=== PATIENT | male | born 1955 | race Two or more races ===

== ENCOUNTER 2023-01-02 17:16 | Inpatient (IN) | payer OTHER ==
[~2023-01-02] VITALS: Ht 165.1 cm; Wt 88.5 kg
--- NOTE | 2023-01-02 17:40 | NUR ---
PTE ALERTA Y ORIENTADO X 3 ESFERAS EN COMPANIA DE FAMILIAR QUIEN REFIERE HGB EN 7.PTE ENVIADO POR DR GILL.
--- NOTE | 2023-01-02 18:22 | NUR ---
RN CARLTON LE ORIENTA A PTE SOBRE TRATAMIENTO E INSTRUCCIONES A SEGUIR, EL REFIERE ENTENDER. LE COLECTA MUESTRAS, SE CANALIZA Y SE ADMINISTRA MEDICAMENTO GARO ORDEN MEDICA. SE LLAMA A BANCO DE [facility] Y SE HABLA CON SOBRE SI PTE TIENE RECORD PREVIO, EL INDICA QUE PTE NO TIENE RECORD PREVIO; EN ADICIONAL SE REQUISA 2 UNIDADES DE PRBC COMPLETAS. SE COLECTA TUBOS PILOTOS Y TERCER TUBO, SE ENVIA A LABORATORIO. PTE FIRMA CONCENTIMIENTO Y SE COLOCA EN RECORD
== END 2023-01-04 16:01 | disposition home or self-care (01) | DRG 349 ==
LOC: ER 17:16 → SURG 18:06 → SEC-K 18:06 → O/R 01-03 12:27 → SURG 01-03 15:57
PROVIDERS: ADMIT Colon & Rectal Surgery; ATTEND Colon & Rectal Surgery
PROC: 06LY0CC Occlusion of Hemorrhoidal Plexus with Extraluminal Device, Open Approach (ICD-10-PCS; 2023-01-03)
PROC: 30233N1 Transfusion of Nonautologous Red Blood Cells into Peripheral Vein, Percutaneous Approach (ICD-10-PCS; 2023-01-03)
PROC: 06BY0ZC Excision of Hemorrhoidal Plexus, Open Approach (ICD-10-PCS; principal; 2023-01-03 13:15)
DX: K64.4 Residual hemorrhoidal skin tags (principal); K64.8 Other hemorrhoids; D64.9 Anemia, unspecified

== ENCOUNTER 2023-06-29 09:24 | Inpatient (IN) | payer OTHER ==
[~2023-06-29] VITALS: Ht 167.6 cm; Wt 78.5 kg
[2023-06-29 13:31] LABS: MEAN CELL VOLUME 91.3 fL (80.0-100.00); MEAN CORPUSCULAR HGB CONC 33.7 g/dl (32.0-36.0); PLATELET COUNT 140 K/uL (150-450); RED BLOOD COUNT 2.33 M/uL (4.00-6.00); RED CELL DISTRIBUTION WIDTH 18.9 % (11.5-14.5)
[2023-06-29 13:33] LABS: HEMATOCRIT 21.2 % (39.0-48.0); HEMOGLOBIN 7.1 g/dL (13-16.00); MEAN CORPUSCULAR HEMOGLOBIN 30.4 pg (27.00-32.0)
[2023-06-29 13:47] LABS: INR 1.26; PARTIAL THROMBOPLASTIN TIME 27.1 SECONDS (22.0-34.0)
[2023-06-29 14:02] LABS: ALBUMIN 2.2 gm/dL (3.4-5.0); ALKALINE PHOSPHATASE 44 U/L (50-136); ALT/SGPT 19 U/L (12-78); ANION GAP 3 (10.0-20.0); AST/SGOT 17 U/L (15-37); BILIRUBIN TOTAL 0.33 mg/dL (0.3-1.2); BILIRUBIN,CONJUGATED < 0.10 mg/dL (0.0-0.2); BILIRUBIN,UNCONJUGATED 0.23 mg/dL (0.0-0.6); BLOOD UREA NITROGEN 26 mg/dL (7-18); BUN CREA RATIO 18 (7.0-25.0); CALCIUM 8.4 mg/dL (8.5-10.1); CARBON DIOXIDE 28 mEq/L (21-32); CHLORIDE 107 mmol/L (98-107); CREATININE SERUM 1.44 mg/dL (0.70-1.30); GFR 48.93; GLUCOSE FASTING 106 mg/dL (65-100); LIPASE 38 U/L (13-75); OSMOLALITY SERUM 273 MOSM/KG (275-295); POTASSIUM 4.07 mEq/L (3.5-5.1); SODIUM 134 mmol/L (136-145)
[2023-06-29 14:37] LABS: GLOBULINA 13.9 G/DL (2.4-3.5); TOTAL PROTEIN 16.1 gm/dL (6.4-8.2)
[2023-06-29 16:03] LABS: URINE COLOR YELLOW
[2023-06-29 16:04] LABS: URINE APPEARANCE CLEAR; URINE BILIRRUBIN NEGATIVE (NEGATIVE); URINE GLUCOSE NEGATIVE (NEGATIVE)
[2023-06-29 16:05] LABS: PH,URINE 5.5 (5.0-8.0); URINE BLOOD TRACE
[2023-06-29 16:06] LABS: URINE LEUKOCYTE NEGATIVE; URINE NITRATE NEGATIVE; URINE PROTEIN TRACE (NEGATIVE); URINE UROBILINOGEN 0.2 E.U./dl
[2023-06-29 16:07] LABS: URINE EPITHELIAL CELLS 1.2 uL (0.0-38.8); URINE RBC 7.4 uL (0.0-20.8); URINE WBC 2.9 uL (0.0-23.2)
[2023-06-29 16:08] LABS: URINE BACTERIA 8.8 uL (0.0-1933)
[2023-06-30 08:44] LABS: MEAN CELL VOLUME 88.8 fL (80.0-100.00); MEAN CORPUSCULAR HGB CONC 33.5 g/dl (32.0-36.0); PLATELET COUNT 131 K/uL (150-450); RED CELL DISTRIBUTION WIDTH 19.3 % (11.5-14.5)
[2023-06-30 08:47] LABS: HEMOGLOBIN 7.7 g/dL (13-16.00); MEAN CORPUSCULAR HEMOGLOBIN 29.6 pg (27.00-32.0)
[2023-06-30 08:48] LABS: HEMATOCRIT 23.1 % (39.0-48.0)
[2023-06-30 09:05] LABS: C-REACTIVE PROTEIN < 0.29 MG/DL (0.00-0.29); LDH 268 U/L (87-241)
[2023-06-30 09:14] LABS: ALBUMIN 2.2 gm/dL (3.4-5.0); BILIRUBIN TOTAL 0.41 mg/dL (0.3-1.2); CALCIUM 8.1 mg/dL (8.5-10.1); CREATININE SERUM 1.37 mg/dL (0.70-1.30); GFR 51.83; GLOBULINA 12.5 G/DL (2.4-3.5); MAGNESIUM 1.9 mg/dL (1.8-2.4); PHOSPHOROUS 3.7 mg/dL (2.5-4.9); POTASSIUM 3.73 mEq/L (3.5-5.1)
[2023-06-30 09:15] LABS: TOTAL PROTEIN 14.7 gm/dL (6.4-8.2)
[2023-06-30 15:48] LABS: MEAN CELL VOLUME 89.9 fL (80.0-100.00); MEAN CORPUSCULAR HGB CONC 34.2 g/dl (32.0-36.0); RED BLOOD COUNT 2.56 M/uL (4.00-6.00); RED CELL DISTRIBUTION WIDTH 18.1 % (11.5-14.5)
[2023-06-30 16:00] LABS: MEAN CORPUSCULAR HEMOGLOBIN 30.8 pg (27.00-32.0)
[2023-06-30 16:05] LABS: PLATELET COUNT 114 K/uL (150-450)
[2023-06-30 16:09] LABS: HEMATOCRIT 23.1 % (39.0-48.0); HEMOGLOBIN 7.9 g/dL (13-16.00)
[2023-07-01 15:23] LABS: MEAN CELL VOLUME 89.5 fL (80.0-100.00); RED BLOOD COUNT 3.24 M/uL (4.00-6.00); RED CELL DISTRIBUTION WIDTH 18.5 % (11.5-14.5)
[2023-07-01 15:24] LABS: HEMOGLOBIN 9.9 g/dL (13-16.00); MEAN CORPUSCULAR HEMOGLOBIN 30.5 pg (27.00-32.0); PLATELET COUNT 111 K/uL (150-450)
[2023-07-01 15:47] LABS: ALBUMIN 1.9 gm/dL (3.4-5.0); BILIRUBIN TOTAL 0.33 mg/dL (0.3-1.2); CREATININE SERUM 1.38 mg/dL (0.70-1.30); GFR 51.39; MAGNESIUM 1.6 mg/dL (1.8-2.4); PHOSPHOROUS 3.3 mg/dL (2.5-4.9); POTASSIUM 4.06 mEq/L (3.5-5.1)
[2023-07-01 16:03] LABS: TOTAL PROTEIN 12.9 gm/dL (6.4-8.2)
[2023-07-03 05:09] LABS: HEMATOCRIT 26.2 % (39.0-48.0); MEAN CORPUSCULAR HEMOGLOBIN 29.9 pg (27.00-32.0); MEAN CORPUSCULAR HGB CONC 34.4 g/dl (32.0-36.0); RED BLOOD COUNT 3.01 M/uL (4.00-6.00); RED CELL DISTRIBUTION WIDTH 18.1 % (11.5-14.5)
[2023-07-03 05:14] LABS: PLATELET COUNT 100 K/uL (150-450)
[2023-07-03 05:28] LABS: MAGNESIUM 1.9 mg/dL (1.8-2.4)
[2023-07-03 05:40] LABS: ALBUMIN 1.8 gm/dL (3.4-5.0); BILIRUBIN TOTAL 0.45 mg/dL (0.3-1.2); CREATININE SERUM 1.28 mg/dL (0.70-1.30); GFR 56.05; POTASSIUM 3.83 mEq/L (3.5-5.1)
[2023-07-03 05:43] LABS: GLOBULINA 10.8 G/DL (2.4-3.5); TOTAL PROTEIN 12.6 gm/dL (6.4-8.2)
[2023-07-04 04:51] LABS: HEMATOCRIT 27.6 % (39.0-48.0); HEMOGLOBIN 9.4 g/dL (13-16.00); MEAN CELL VOLUME 87.2 fL (80.0-100.00); MEAN CORPUSCULAR HEMOGLOBIN 29.8 pg (27.00-32.0); MEAN CORPUSCULAR HGB CONC 34.1 g/dl (32.0-36.0); RED BLOOD COUNT 3.17 M/uL (4.00-6.00); RED CELL DISTRIBUTION WIDTH 17.7 % (11.5-14.5)
[2023-07-04 04:59] LABS: PLATELET COUNT 100 K/uL (150-450)
[2023-07-04 05:31] LABS: ALBUMIN 1.8 gm/dL (3.4-5.0); BILIRUBIN TOTAL 0.54 mg/dL (0.3-1.2); CALCIUM 8.1 mg/dL (8.5-10.1); CREATININE SERUM 1.26 mg/dL (0.70-1.30); GFR 57.08; MAGNESIUM 1.8 mg/dL (1.8-2.4); PHOSPHOROUS 3.8 mg/dL (2.5-4.9); POTASSIUM 3.71 mEq/L (3.5-5.1)
[2023-07-04 05:34] LABS: GLOBULINA 11.3 G/DL (2.4-3.5)
[2023-07-04 05:36] LABS: TOTAL PROTEIN 13.1 gm/dL (6.4-8.2)
[2023-07-04 05:43] LABS: IMMUNOGLOBULIN A 10 mg/dL (61-437); IMMUNOGLOBULIN G 12706 mg/dL (603-1613); IMMUNOGLOBULIN M < 5 mg/dL (20-172); kappa lambda r 429.17 (0.26-1.65); kappa light 1244.6 mg/L (3.3-19.4); lambda light 2.9 mg/L (5.7-26.3)
[2023-07-04] MEDS ORDERED: INTEGRA PLUS C1 EACH PO (13:02)
[2023-07-04] MEDS ORDERED: AMLODIPINE BESY10 MG PO (13:02)
[2023-07-04] MEDS ORDERED: PRE PROTEIN1 EACH PO (13:03)
[2023-07-04] MEDS ORDERED: COLACE100 MG PO (13:03)
[2023-07-04 14:12] LABS: a:g ratio 0.4 (0.7-1.7); alpha 1 g 0.2 g/dL (0.0-0.4); alpha 2 0.9 g/dL (0.4-1.0); beta g 1.1 g/dL (0.7-1.3); gamma g 8.1 g/dL (0.4-1.8); globulin t 10.2 g/dL (2.2-3.9); m spike 7.8 g/dL (Not Observed); prot total 14.2 g/dL (6.0-8.5)
[2023-07-05 10:11] LABS: BETA-2-MICROGLOBULINA 3.8 mg/L (0.6-2.4)
== END 2023-07-04 14:46 | disposition home or self-care (01) | DRG 812 ==
LOC: ER 09:25 → MEDI 19:44
PROVIDERS: Emergency Medicine; Internal Medicine; Internal Medicine Hematology & Oncology; ADMIT Internal Medicine; ATTEND Internal Medicine
PROC: 30233N1 Transfusion of Nonautologous Red Blood Cells into Peripheral Vein, Percutaneous Approach (ICD-10-PCS; 2023-06-30)
PROC: 07DR3ZX Extraction of Iliac Bone Marrow, Percutaneous Approach, Diagnostic (ICD-10-PCS; principal; 2023-07-02)
PROC: 0DJD8ZZ Inspection of Lower Intestinal Tract, Via Natural or Artificial Opening Endoscopic (ICD-10-PCS; 2023-07-04)
DX: D62 Acute posthemorrhagic anemia (principal); N17.9 Acute kidney failure, unspecified; K64.0 First degree hemorrhoids; R77.1 Abnormality of globulin; N18.9 Chronic kidney disease, unspecified; Z20.822 Contact with and (suspected) exposure to COVID-19; I12.9 Hypertensive chronic kidney disease with stage 1 through stage 4 chronic kidney disease, or unspecified chronic kidney disease; D69.6 Thrombocytopenia, unspecified

== ENCOUNTER 2023-08-29 12:11 | Outpatient (CLI) | payer OTHER ==
[~2023-08-29 12:11] MED LIST: AMLODIPINE BESY10 MG PO; COLACE100 MG PO; INTEGRA PLUS C1 EACH PO; PRE PROTEIN1 EACH PO
== END 2023-08-29 12:19 | disposition home or self-care (01) ==
LOC: RAD 12:11
PROVIDERS: ATTEND Internal Medicine
DX: C90.00 Multiple myeloma not having achieved remission (principal)